=== PATIENT | male | born 1985 | race Two or more races ===

== ENCOUNTER 2024-10-09 12:20 | Emergency (ER) | payer MEDICAID, SELFPAY ==
[2024-10-09 12:22] VITALS: BMI 20.5
--- NOTE | 2024-10-09 12:26 | EKG_ITS ---
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
--- NOTE | 2024-10-09 12:41 | XR_ITS ---
Examination: PA lateral chest 2 views TECHNIQUE: Upright PA lateral chest 2 views Date and time: October 09, 2024: 55 hours Comparison August 26, 2018 INDICATIONS: Burning sensation in the chest and abdomen 5 days FINDINGS: Dextrocardia Mild prominence of ventricles No pneumonia or pulmonary edema Stable osseous sternal deformity Moderate hyperexpansion IMPRESSION: Moderate hyperexpansion No pneumonia or pulmonary edema
[2024-10-09 12:43] VITALS: BP 112/74; PULSE 96; RESP 18; TEMP 37.1; O2SAT 98
[2024-10-09 13:26] LABS: Collection Type, Urine Clean Catch
[2024-10-09 13:30] LABS: Basophils # (Auto) 0.1 Thou/mm3 (0.0-0.2); Basophils % (Auto) 1 % (0-2.5); Eosinophils # (Auto) 0.1 Thou/mm3 (0.0-0.5); Eosinophils % (Auto) 1 % (0-10); Hematocrit 41.2 % (41.0-53.0); Hemoglobin 14.7 g/dL (13.5-16.0); Immature Granulocytes % (Auto) 0 % (0-0); Immature Granulocytes Auto 0.03 Thou/mm3 (0.00-0.00); Lymphocytes # (Auto) 3.6 Thou/mm3 (1.0-4.8); Lymphocytes % (Auto) 35 % (10-50); Mean Corpuscular HGB Conc 35.7 g/dl (31.0-37.0); Mean Corpuscular Hemoglobin 32.4 pg (25.0-35.0); Mean Corpuscular Volume 91 fL (80-100); Monocytes # (Auto) 0.6 Thou/mm3 (0.0-0.8); Monocytes % (Auto) 6 % (0-12); Neutrophils # (Auto) 6.1 Thou/mm3 (1.8-7.7); Neutrophils % (Auto) 58 % (37-80); Nucleated Red Blood Cell % 0 /100 WBC (0); Platelet Count 278 Thou/mm3 (140-440); RDW Standard Deviation 46.4 fL (35.1-43.9); Red Blood Count 4.54 Miln/mm3 (4.50-5.90); White Blood Count 10.4 Thou/mm3 (3.8-10.6)
[2024-10-09 13:46] LABS: Amphetamine/Methamp Scrn,U Negative (Negative); Barbiturate Screen,Urine Negative (Negative); Benzodiazepines Screen,Urine Negative (Negative); Benzoylecgonine Screen, Ur Negative (Negative); Bilirubin,Urine Negative (Negative); Blood,Urine Trace (Negative); Clarity,Urine Clear (Clear/Hazy); Color,Urine Yellow (Lt Yel-Yel); Fentanyl Screen,Urine Negative (Negative); Glucose, Urine Negative (Negative); Ketones,Urine Trace (Negative); Leukocyte Esterase,Urine Negative (Negative); Nitrite,Urine Negative (Negative); Opiate Screen,Urine Negative (Negative); PH,Urine 6.5 (5.0-7.0); Protein,Urine Trace (Neg - Trace); RBC,Urine < 1 /hpf (0-3); Specific Gravity,Urine 1.019 (1.001-1.035); Squamous Epithelial Cell,Urine < 1 /hpf (0-5); THC Screen,Urine Positive (Negative); WBC,Urine 1 /hpf (0-5)
[2024-10-09 13:47] LABS: Alanine Aminotransferase 18 U/L (10-49); Albumin, Serum 4.8 gm/dL (3.5-5.0); Albumin/Globulin Ratio 1.9 (1.2-2.2); Alkaline Phosphatase 105 U/L (46-116); Anion Gap 7 (7-16); Aspartate Amino Transferase 23 U/L (0-34); BUN/Creatinine Ratio 8 Ratio (12-20); Bilirubin,Total 0.7 mg/dL (0.3-1.2); Blood Urea Nitrogen 8 mg/dL (9-23); Calcium 9.3 mg/dL (8.3-10.6); Calcium (Corrected) 9.3 mg/dL (8.5-10.1); Chloride 102 mMol/L (98-107); Estimated Creatinine Clearance 78.3 mL/min (>60); Globulin 2.5 gm/dL (2.3-3.5); Glucose 98 mg/dL (74-106); Lipase 42 U/L (12-53); Osmolality,Calculated 270 (275-295); Sodium 136 mMol/L (136-145); Total Protein 7.3 gm/dL (5.7-8.2); Troponin I < 0.002 ng/mL (0.0-0.045); eGFR > 60 See Note
[2024-10-09 13:56] LABS: B-Type Natriuretic Peptide < 20 pg/mL (0-100)
--- NOTE | 2024-10-09 14:29 | PD.EDCHEST ---
ED Chest Pain RME/HPI General Chief Complaint: Chest Pain Stated Complaint: CHEST PAIN/WEAKNESS Time Seen by Provider: 10/09/24 12:41 Arrival date/time: 10/09/24 12:20 39-year-old male with prior history of alcohol abuse states he has not drank in approximately 3 years presents emergency department today for complaint of chest pain ongoing intermittently for the last few days Limitations: no limitations Related Data Home Medications ?Medication ?Instructions ?Recorded ?Confirmed No Known Home Medications 08/30/19 08/30/19 No Known Home Medications 09/01/19 09/01/19 Previous Rx's ?Medication ?Instructions ?Recorded chlordiazepoxide HCl 25 mg capsule 25 mg PO Q8H PRN alcohol 09/02/19 withdrawal #30 caps ondansetron 4 mg disintegrating 4 mg PO Q6H PRN nausea and 09/02/19 tablet vomiting #10 tabs pantoprazole 40 mg tablet,delayed 40 mg PO QAM #14 tabs 09/02/19 release (Protonix) Allergies Allergy/AdvReac Type Severity Reaction Status Date / Time No Known Allergies Allergy Verified 10/09/24 13:57 Review of Systems Review of Systems Systems Reviewed: All systems reviewed, normal except as documented Constitutional Constitutional: Reports system reviewed and no additional complaints, except as documented, Denies fever(s) and Denies headache(s) Eyes Eyes: Reports system reviewed and no additional complaints, except as documented and Denies blurry vision ENT Ears, Nose, Mouth, and Throat: Reports system reviewed and no additional complaints, except as documented, Denies headache(s), Denies nasal congestion and Denies nasal discharge Cardiovascular Cardiovascular: Reports system reviewed and no additional complaints, except as documented, Reports chest pain and Denies dyspnea Respiratory Respiratory: Reports system reviewed and no additional complaints, except as documented, Denies chest congestion, Denies cough and Denies dyspnea Gastrointestinal Gastrointestinal: Reports system reviewed and no additional complaints, except as documented and Denies abdominal pain Integumentary/Breasts Skin/Breast: Reports system reviewed and no additional complaints, except as documented and Denies rash Neurologic Neurologic: Reports system reviewed and no additional complaints, except as documented, Reports as per HPI and Denies headache(s) Past Medical History Past Medical History NEUROLOGIC: Negative Neurological Disorders or Seizures CARDIAC: Positive Congenital Heart Disease; Negative Cardiac Disorders or Congestive Heart Failure RESPIRATORY: Negative Chronic Obstructive Pulmonary Disease (COPD) or Asthma GASTROINTESTINAL: Negative Gastrointestinal Disorders GENITOURINARY: Negative Genitourinary Disorders or Renal Disease MUSCULOSKELETAL: Negative Musculoskeletal Disorders ENDOCRINE: Negative Endocrine Disorders, Diabetes Mellitus Type 1 or Diabetes Mellitus Type 2 HEMATOLOGIC: Negative Blood Disorders or Sickle Cell Disease OTHER HISTORY: Negative Autoimmune Disease, Blood Transfusions, Anesthesia Reactions, Organ Transplant or MRSA Family History FAMILY HISTORY: Negative Family Psychiatric Problems, Family Respiratory Disorders, Family Cardiac Disorders, Family Gastrointestinal Problems, Family Cancer, Family Surgery or Family Anesthesia Reaction Surgical History SURGICAL: Negative Cardiac Surgery, Ear Surgery, Abdominal Surgery, Nephrectomy, Joint Replacement, Vasectomy or Organ Transplant Social History SMOKING STATUS: Heavy (> 1 pack/day) SECOND HAND EXPOSURE: Yes SUBSTANCE USE: does not use ED Exam General Limitations: Present no limitations General appearance: Present alert and in no apparent distress Head Head exam: Present atraumatic, normocephalic and normal inspection Eye Eye exam: Present normal appearance, PERRL and EOMI; Absent conjunctival injection ENT ENT exam: Present normal exam, normal oropharynx and mucous membranes moist Neck Neck exam: Present normal inspection, full ROM and trachea midline Chest Chest inspection: Present normal inspection and symmetric chest wall rise Respiratory Respiratory exam: Present normal lung sounds bilaterally; Absent respiratory distress Cardiovascular Cardiovascular exam: Present regular rate, normal rhythm and normal heart sounds Abdominal Exam Abdominal exam: Present soft and normal bowel sounds; Absent distention, tenderness, guarding, rebound, rigidity, Garcia's sign or tenderness at McBurney's Point Abdominal tenderness: Absent RUQ or RLQ Extremities Exam Extremities exam: Present normal inspection and full ROM Back Exam Back exam: Present normal inspection and full ROM Neurological Exam Neurological exam: Present alert, oriented X3, CN II-XII intact, normal gait and reflexes normal; Absent motor sensory deficit Psychiatric Psychiatric exam: Present normal affect and normal mood Skin Skin exam: Present warm, dry, intact and normal color; Absent rash Course Quality Measures none Orders Category Date Time Status EKG (ED ONLY) *Do not use* NOW Care 10/09/24 12:26 Completed EKG (ED Only) Stat Exams 10/09/24 12:26 Draft XR chest 2V Stat Exams 10/09/24 12:41 Completed B-Type Natriuretic Peptide Stat Lab 10/09/24 13:22 Completed CBC Stat Lab 10/09/24 13:22 Completed Comprehensive Metabolic Panel Stat Lab 10/09/24 13:22 Completed Drug Screen,Urine Stat Lab 10/09/24 13:11 Completed Lipase Stat Lab 10/09/24 13:22 Completed Troponin I Stat Lab 10/09/24 13:22 Completed Urinalysis Stat Lab 10/09/24 13:11 Completed Vital Signs Vital signs: Vital Signs Temperature 98.8 F 10/09/24 12:43 Pulse Rate 96 10/09/24 12:43 Respiratory Rate 18 10/09/24 12:43 Blood Pressure 112/74 10/09/24 12:43 Pulse Oximetry (%) 98 10/09/24 12:43 Oxygen Delivery Method Room Air 10/09/24 12:43 O2 saturation 98% room air within normal limits PROCEDURES: EKG Interpretation #1: Date of EK10/09/24 Time of EK:45 Rate: 81 Interpretation: Interpreted by me EKG Impression: Normal sinus rhythm, No acute ST-T changes, No ectopy, No ischemic changes, Normal QRS, Normal intervals and Normal axis Chest Pain MDM Narrative MDM Narrative:: 39-year-old male with prior history of alcohol abuse states he has not drank in approximately 3 years presents emergency department today for complaint of chest pain ongoing intermittently for the last few days On exam patient well-appearing patient does not appear ill or toxic in no acute distress Lab work and imaging obtained no acute emergent findings noted EKG within normal limits Patient discharged home in no distress to follow-up with primary care doctor in the next 24 to 48 hours and for any worsening symptoms to return to the ER immediately Patient data External records reviewed:: [facility] previous records Clinical information provided by:: patient Social determinants that could affect healthcare access:: none Patient has the following chronic illnesses:: None How is presenting disease/condition affected by chronic disease/condition?: no chronic disease Evaluation data The following diagnostics were reviewed and interpreted by me:: lab results, radiology exam(s) and EKG tracing(s) Lab and/or radiology exams considered but not ordered:: Lab radiology EKG obtained Interpretation Summary: Reviewed by me Medications / Prescriptions Medications or Prescriptions considered but not ordered:: Given Medication administrations:: Given Consultations Consultation(s) initiated? (list below): No Diagnosis Chest Pain Differential Diagnosis: fracture of rib, pneumothorax, costochondritis, chest pain and biliary colic Most likely diagnosis given after review of the tests above:: Chest. Admission Indicated Admission indicated?: not indicated Admission Request Was there a request for admission?: No Disposition Plan Disposition Plan: Discharge Discharge Attestation Discharge Attestation: The patient and all family members were given an opportunity to ask questions and understood the discharge instructions. Discharge instructions specifically effects, indications for sooner follow up or return to the emergency department, and the expected course of current diagnosis. Patient condition: Stable Discharge Plan Plan Patient Disposition: HOME (Self Care) Discharge Disposition comment: Stable Prescriptions/Referrals Prescriptions/Med Rec: No Action No Known Home Medications No Known Home Medications chlordiazepoxide HCl 25 mg capsule 25 mg PO Q8H PRN (Reason: alcohol withdrawal) Qty: 30 0RF ondansetron 4 mg tablet,disintegrating 4 mg PO Q6H PRN (Reason: nausea and vomiting) Qty: 10 0RF pantoprazole [Protonix] 40 mg tablet,delayed release (DR/EC) 40 mg PO QAM Qty: 14 0RF Referrals: Nain Wyman MD [Primary Care Provider] - 10/10/24 Problem List Clinical Impression: Chest pain Patient/Caregiver Discharge Instructions Education Materials: ED Chest Pain, Noncardiac Additional Instructions: Please follow up with your primary care doctor in the next 24-48hrs for any worsening symptoms return here immediately Print Language: Wallisian Stand Alone Forms: Claudia Award Info., Patient Portal Info Letter PA/EDIN Supervising Physician FEDE/EDIN Supervising Physician: Dr. short
== END 2024-10-09 15:24 | disposition home or self-care (01) ==
PROVIDERS: Nurse Practitioner Primary Care; Emergency Provider Emergency Medicine; PCP Family Medicine
DX: R07.9 Chest pain, unspecified (principal); R20.8 Other disturbances of skin sensation; Q24.0 Dextrocardia
CPT/HCPCS: 36415; 71046; 80053; 80307; 81001; 83690; 83880; 84484; 85025; 93005; 99283